=== PATIENT | female | born 1990 | race Caucasian/White ===

== ENCOUNTER 2020-04-22 16:15 | Inpatient (IN) | payer BC ==
[~2020-04-22] VITALS: Ht 157.5 cm; Wt 54.0 kg
[2020-04-22] MEDS ORDERED: IV NORMAL SALINE 1000 ML BAG IV ONE ×2 (17:00→19:15)
--- NOTE | 2020-04-22 17:18 | NUR ---
PATIENT OUT OF UNIT FOR US.
[2020-04-22 17:27] LABS: BASOPHILS # (AUTO) 0.1 K/uL (0.0-8.0); BASOPHILS % (AUTO) 0.4 % (0.0-2.0); EOSINOPHILS % (AUTO) 0.1 % (0.0-7.0); HEMATOCRIT 41.6 % (31.2-41.9); HEMOGLOBIN 13.8 g/dL (10.9-14.3); LYMPHOCYTES # (AUTO) 1.6 K/uL (20.0-40.0); LYMPHOCYTES % (AUTO) 9.3 % (20.5-51.5); MEAN CORPUSCULAR HEMOGLOBIN 30.5 uug (24.7-32.8); MEAN CORPUSCULAR HGB CONC 33 g/dL (32.3-35.6); MONOCYTES # (AUTO) 1.4 K/uL (2.0-10.0); MONOCYTES % (AUTO) 8.2 % (0.0-11.0); NEUTROPHILS # (AUTO) 14.4 K/uL (1.8-8.9); PLATELET COUNT (AUTO) 280 K/uL (179-408); RED BLOOD CELL COUNT(AUTO) 4.53 MIL/uL (3.63-4.92); WHITE BLOOD COUNT (AUTO) 17.5 K/uL (3.8-11.8)
--- NOTE | 2020-04-22 17:35 | NUR ---
PATIENT BACK FROM US WITH NO DISTRESS.
[2020-04-22 17:42] LABS: CARBON DIOXIDE 26 mmol/L (21-32); CHLORIDE 98 mmol/L (98-107); CREATININE 0.9 mg/dL (0.6-1.3); GLUCOSE 135 mg/dL (74-106); POTASSIUM 3.3 mmol/L (3.5-5.1); UREA NITROGEN, BLOOD 6 mg/dL (7-18)
[2020-04-22 17:48] LABS: ALANINE AMINOTRANSFERASE 20 U/L (14-59); ALKALINE PHOSPHATASE 40 U/L (50-136); ASPARTATE AMINOTRANSFERASE 13 U/L (15-37); BILIRUBIN,DIRECT 0.3 mg/dL (0.0-0.2); BILIRUBIN,TOTAL 1.2 mg/dL (0.2-1.0); LIPASE 75 U/L (73-393); TOTAL PROTEIN, SERUM 8.8 g/dL (6.4-8.2)
[2020-04-22 18:12] LABS: *CLARITY,URINE SLIGHTLY CLOUDY (CLEAR); *COLOR,URINE DARK YELLOW (YELLOW); *KETONES,URINE 4+ (NEGATIVE); LEUKOCYTE ESTERASE ,URINE 1+ (NEGATIVE); NITRITE, URINE NEGATIVE (NEGATIVE); UGLUCOSE NEGATIVE (NEGATIVE)
[2020-04-22 18:14] LABS: *BILIRUBIN,URIN 2+ (NEGATIVE); *BLOOD, URINE TRACE (NEGATIVE)
[2020-04-22] MEDS ORDERED: IV NORMAL SALINE 250 ML IV ONE (18:21)
[2020-04-22] MEDS ORDERED: IOHEXOL 300MG/ML 100 ML INFUS..BTL ONE (18:21)
[2020-04-22] MEDS ORDERED: SWABABLE VALVE TRANSFER SET EA MC ONE (18:21)
[2020-04-22 19:12] LABS: BACTERIA,URINE FEW /HPF (NONE SEEN); RBC,URINE 0-3 /HPF (0-3); SQUAMOUS EPITHELIAL CELL,UR MANY /HPF (NONE SEEN)
[2020-04-22] MEDS ORDERED: PIPERACILLIN SODIUM/TAZOBACTAM 3.375 G in IV DEXTROSE 5% 50 ML IV ONE (19:15)
[2020-04-22] MEDS ORDERED: DIATR MEGLU/DIATRIZOATE SODIUM 30 ML BOTTLE ONE (19:19)
[2020-04-22] MEDS ORDERED: PIPERACILLIN/TAZOBACTAM/D5W 50 ML IV ONE (19:26)
--- NOTE | 2020-04-22 20:49 | NUR ---
DR MARYANN ZACARIAS INTO EVAL PATIENT A SURGERY CONSULT.
--- NOTE | 2020-04-22 21:45 | NUR ---
Received patient via wheelchair from ED. No s/s of acute distress noted. Pt denies pain, and n/v at this times. AAOX4. Ambulatory and independent. Safety measures in place and will continue to monitor.
--- NOTE | 2020-04-22 23:45 | NUR ---
Transfered to 3rd floor med surg via wheelchair with no distress noted.
[2020-04-23 00:40] VITALS: BP 128/63
[2020-04-23] MEDS ORDERED: ACETAMINOPHEN 650 MG SUPP.RECT RC PRN (01:30)
[2020-04-23] MEDS ORDERED: MORPHINE SULFATE 2 MG/1 ML DISP.SYRIN IV PRN (01:30)
[2020-04-23] MEDS: IV D5/ 0.9% NACL 1,000 ML IV PRN ×2 (02:27→16:31)
[2020-04-23 04:00] VITALS: BP 123/69
[2020-04-23 08:07] LABS: BASOPHILS % (AUTO) 0.3 % (0.0-2.0); EOSINOPHILS # (AUTO) 0.1 K/uL (0.0-0.7); EOSINOPHILS % (AUTO) 1.1 % (0.0-7.0); HEMATOCRIT 34.4 % (31.2-41.9); HEMOGLOBIN 11.8 g/dL (10.9-14.3); LYMPHOCYTES # (AUTO) 2.6 K/uL (20.0-40.0); LYMPHOCYTES % (AUTO) 18.8 % (20.5-51.5); MEAN CORPUSCULAR HEMOGLOBIN 31.6 uug (24.7-32.8); MEAN CORPUSCULAR HGB CONC 34 g/dL (32.3-35.6); MEAN CORPUSCULAR VOLUME 92.3 fL (75.5-95.3); MONOCYTES # (AUTO) 1.3 K/uL (2.0-10.0); MONOCYTES % (AUTO) 9.7 % (0.0-11.0); NEUTROPHILS # (AUTO) 9.6 K/uL (1.8-8.9); NEUTROPHILS % (AUTO) 70.1 % (38.5-71.5); PLATELET COUNT (AUTO) 247 K/uL (179-408); RED BLOOD CELL COUNT(AUTO) 3.73 MIL/uL (3.63-4.92); WHITE BLOOD COUNT (AUTO) 13.7 K/uL (3.8-11.8)
[2020-04-23 08:38] LABS: BILIRUBIN,TOTAL 0.9 mg/dL (0.2-1.0); CREATININE 0.7 mg/dL (0.6-1.3); MAGNESIUM 2.1 mg/dL (1.8-2.4); PHOSPHOROUS 2.7 mg/dL (2.5-4.9); POTASSIUM 3.6 mmol/L (3.5-5.1); TOTAL PROTEIN, SERUM 7.2 g/dL (6.4-8.2)
[2020-04-23] MEDS ORDERED: PANTOPRAZOLE SODIUM 40 MG VIAL IV SCH (09:00)
[2020-04-23] MEDS: PIPERACILLIN SODIUM/TAZOBACTAM 3.37 G in IV DEXTROSE 5% 100 ML IV SCH ×2 (09:14→16:24)
[2020-04-23] MEDS ORDERED: GOLYTELY 4000 ML BOTTLE PO ONE (10:00)
[2020-04-23 12:00] VITALS: BP 108/51
[2020-04-23] MEDS ORDERED: PIPERACILLIN SODIUM/TAZOBACTAM 3.375 G in IV DEXTROSE 5% 50 ML IV SCH (14:00)
[2020-04-23 16:00] VITALS: BP 118/73
--- NOTE | 2020-04-23 19:30 | NUR ---
RECEIVED PT AWAKE, ALERT AND ORIENTEDX4. PT IN NO ACUTE DISTRESS. IV INTACT. PT TO HAVE BOWEL PREP. NPO MIDNIGHT FOR PROCEDURE [place]. CONSENT SIGNED. SAFETY AND COMFORT PROVIDED. WILL CONTINUE TO MONITOR.
[2020-04-23 20:00] VITALS: BP 122/77
[2020-04-24] MEDS: PIPERACILLIN SODIUM/TAZOBACTAM 3.37 G in IV DEXTROSE 5% 100 ML IV SCH ×2 (00:19→09:00)
[2020-04-24 04:00] VITALS: BP 108/68
--- NOTE | 2020-04-24 06:33 | NUR ---
PT IN NO ACUET DISTRESS.PT HAD LAST GI WASTE CLEAR LIQUID. PT FINISHED HER GOLITELY. PRESCRIBED MEDICATION GIVEN AND PT TOLERATED IT WELL. SAFETY AND COMFORT PROVIDED. PREOP CHECKLIST DONE. ALL NEEDS ARE MET . WILL ENDORSE TO INCOMING NURSE FOR CONITNUITY OF CARE.
--- NOTE | 2020-04-24 06:52 | NUR ---
GAVE REPORT TO FROM SURGERY.
--- NOTE | 2020-04-24 07:00 | NUR ---
pt went for surgery via bed in stable condition
[2020-04-24 07:18] LABS: BILIRUBIN,TOTAL 0.5 mg/dL (0.2-1.0); CREATININE 0.7 mg/dL (0.6-1.3); POTASSIUM 3.7 mmol/L (3.5-5.1); TOTAL PROTEIN, SERUM 6.5 g/dL (6.4-8.2)
[2020-04-24 07:28] LABS: BASOPHILS # (AUTO) 0.2 K/uL (0.0-8.0); BASOPHILS % (AUTO) 1.7 % (0.0-2.0); EOSINOPHILS # (AUTO) 0.2 K/uL (0.0-0.7); EOSINOPHILS % (AUTO) 2.6 % (0.0-7.0); HEMATOCRIT 34.3 % (31.2-41.9); HEMOGLOBIN 11.7 g/dL (10.9-14.3); LYMPHOCYTES # (AUTO) 3.2 K/uL (20.0-40.0); LYMPHOCYTES % (AUTO) 35.1 % (20.5-51.5); MEAN CORPUSCULAR HEMOGLOBIN 31.4 uug (24.7-32.8); MEAN CORPUSCULAR HGB CONC 34 g/dL (32.3-35.6); MEAN CORPUSCULAR VOLUME 92.3 fL (75.5-95.3); MONOCYTES # (AUTO) 0.9 K/uL (2.0-10.0); MONOCYTES % (AUTO) 10.3 % (0.0-11.0); NEUTROPHILS # (AUTO) 4.5 K/uL (1.8-8.9); NEUTROPHILS % (AUTO) 50.3 % (38.5-71.5); PLATELET COUNT (AUTO) 251 K/uL (179-408); RED BLOOD CELL COUNT(AUTO) 3.72 MIL/uL (3.63-4.92)
[2020-04-24] MEDS ORDERED: MIDAZOLAM HCL 2 MG/2 ML VIAL ONE (07:36)
[2020-04-24] MEDS ORDERED: FENTANYL CITRATE 100 MCG/2 ML AMPUL ONE ×2 (07:36→12:17)
[2020-04-24] MEDS ORDERED: METRONIDAZOLE 500 MG/NS 100 ML PIGGYBACK IV ONE (08:03)
[2020-04-24] MEDS ORDERED: LIDOCAINE HCL 1% 20 ML VIAL ONE (08:38)
[2020-04-24] MEDS ORDERED: BUPIVACAINE/EPI PF 0.5% 10 ML VIAL ONE ×2 (08:38→11:19)
[2020-04-24] MEDS: FAMOTIDINE. 20 MG/2 ML VIAL IV SCH ×2 (09:00→21:05)
[2020-04-24] MEDS ORDERED: ACETAMINOPHEN ES 500 MG TABLET PO PRN (11:45)
[2020-04-24 12:00] VITALS: BP 137/84
--- NOTE | 2020-04-24 12:53 | NUR ---
pt received back from recovery room via bed in stable condition
[2020-04-24] MEDS: METRONIDAZOLE 500 MG/NS 100ML 100 ML IV SCH ×2 (12:56→21:05)
[2020-04-24] MEDS: CEFAZOLIN 2 G in IV DEXTROSE 5% 100 ML IV SCH ×2 (14:00→22:56)
[2020-04-24] MEDS: HYDROCODONE/APAP 5-325MG TABLET PO PRN (14:22)
[2020-04-24] MEDS: ONDANSETRON 4 MG/2 ML VIAL IV PRN (14:23)
[2020-04-24] MEDS: HYDROMORPHONE 1 MG/1 ML DISP.SYRIN IV PRN ×2 (15:53→21:10)
[2020-04-24 16:00] VITALS: BP 137/81
--- NOTE | 2020-04-24 17:17 | NUR ---
in room sleeping no c/o pain noted .clear liquids tolerated.call light with in reach
[2020-04-24 20:21] VITALS: BP 124/73
[2020-04-24] MEDS: IV D5/ 0.9% NACL 1,000 ML IV PRN (21:05)
--- NOTE | 2020-04-25 00:28 | NUR ---
Received pt resting in bed. AAO x4. No acute distress noted. Complaint of pain post- op surgery, PRN pain med given as ordered. Other due meds given as ordered. IV on left AC, running IVF D5 80cc/hr. On clear liquid diet, tolerating well. Safety measures maintained. Call light and personal items within reach. Will continue to monitor.
[2020-04-25] MEDS: HYDROCODONE/APAP 5-325MG TABLET PO PRN ×2 (00:53→21:13)
[2020-04-25] MEDS: HYDROMORPHONE 1 MG/1 ML DISP.SYRIN IV PRN ×3 (04:01→16:46)
[2020-04-25 04:03] VITALS: BP 136/74
--- NOTE | 2020-04-25 07:00 | NUR ---
Received pt resting in bed. AAO x4. No acute distress noted. Complaint of pain post- op surgery, IV on left AC, running IVF . On clear liquid diet, tolerating well. Safety measures maintained. Call light and personal items within reach. Will continue to monitor.
--- NOTE | 2020-04-25 07:41 | NUR ---
pt walk in the hallway tolerated well burping and no c/o nausea and vomiting noted
[2020-04-25] MEDS: FAMOTIDINE. 20 MG/2 ML VIAL IV SCH ×2 (07:52→21:13)
[2020-04-25 08:02] LABS: BASOPHILS % (AUTO) 0.4 % (0.0-2.0); EOSINOPHILS % (AUTO) 0.3 % (0.0-7.0); HEMOGLOBIN 10.1 g/dL (10.9-14.3); LYMPHOCYTES # (AUTO) 1.9 K/uL (20.0-40.0); LYMPHOCYTES % (AUTO) 17.7 % (20.5-51.5); MEAN CORPUSCULAR HEMOGLOBIN 31.8 uug (24.7-32.8); MEAN CORPUSCULAR HGB CONC 35 g/dL (32.3-35.6); MEAN CORPUSCULAR VOLUME 91.7 fL (75.5-95.3); MONOCYTES # (AUTO) 0.8 K/uL (2.0-10.0); MONOCYTES % (AUTO) 7.7 % (0.0-11.0); NEUTROPHILS # (AUTO) 8.1 K/uL (1.8-8.9); NEUTROPHILS % (AUTO) 73.9 % (38.5-71.5); PLATELET COUNT (AUTO) 225 K/uL (179-408); RED BLOOD CELL COUNT(AUTO) 3.16 MIL/uL (3.63-4.92); WHITE BLOOD COUNT (AUTO) 10.9 K/uL (3.8-11.8)
[2020-04-25 08:08] LABS: BILIRUBIN,TOTAL 0.4 mg/dL (0.2-1.0); CREATININE 0.6 mg/dL (0.6-1.3); POTASSIUM 3.4 mmol/L (3.5-5.1); TOTAL PROTEIN, SERUM 5.7 g/dL (6.4-8.2)
[2020-04-25] MEDS ORDERED: POTASSIUM CHLORIDE 20 MEQ POWDER PACKET PO ONE (09:30)
[2020-04-25] MEDS ORDERED: POTASSIUM CHLORIDE 20 MEQ TAB.PRT.SR PO ONE (09:30)
[2020-04-25] MEDS: ONDANSETRON 4 MG/2 ML VIAL IV PRN (09:58)
[2020-04-25] MEDS: IV D5/ 0.9% NACL 1,000 ML IV PRN (12:11)
[2020-04-25 12:32] VITALS: BP 114/65
[2020-04-25] MEDS ORDERED: IV NS 1000 ML 1,000 ML IV ONE (13:00)
[2020-04-25 15:49] VITALS: BP 121/79
[2020-04-25 20:00] VITALS: BP 137/83
--- NOTE | 2020-04-25 21:50 | NUR ---
Received pt resting in bed. AAO x4. No acute distress noted. Pt ambulated inside the room. Complaint of 7/10 pain on abdomen, PRN [place]ott and other due med given as ordered. IV on left AC running IVF. Pt burping. Pt not passing gas yet. Lazo catheter patent and intact, draining well with clear yellow colored urine. Safety measures maintained. Call light and personal items within reach. Will continue to monitor.
[2020-04-26] MEDS: ONDANSETRON 4 MG/2 ML VIAL IV PRN (02:42)
[2020-04-26 05:09] VITALS: BP 138/84
--- NOTE | 2020-04-26 05:12 | NUR ---
Pt reported to have passed gas and had 2 BM.
[2020-04-26 07:34] LABS: BASOPHILS # (AUTO) 0.4 K/uL (0.0-8.0); BASOPHILS % (AUTO) 3.7 % (0.0-2.0); EOSINOPHILS # (AUTO) 0.1 K/uL (0.0-0.7); EOSINOPHILS % (AUTO) 0.9 % (0.0-7.0); HEMATOCRIT 34.4 % (31.2-41.9); HEMOGLOBIN 11.4 g/dL (10.9-14.3); LYMPHOCYTES # (AUTO) 1.3 K/uL (20.0-40.0); LYMPHOCYTES % (AUTO) 12.8 % (20.5-51.5); MEAN CORPUSCULAR HEMOGLOBIN 30.2 uug (24.7-32.8); MEAN CORPUSCULAR HGB CONC 33 g/dL (32.3-35.6); MEAN CORPUSCULAR VOLUME 91.4 fL (75.5-95.3); MONOCYTES # (AUTO) 0.6 K/uL (2.0-10.0); MONOCYTES % (AUTO) 5.7 % (0.0-11.0); NEUTROPHILS % (AUTO) 76.9 % (38.5-71.5); PLATELET COUNT (AUTO) 286 K/uL (179-408); RED BLOOD CELL COUNT(AUTO) 3.77 MIL/uL (3.63-4.92); WHITE BLOOD COUNT (AUTO) 10.3 K/uL (3.8-11.8)
[2020-04-26 07:36] LABS: CARBON DIOXIDE 24 mmol/L (21-32); CHLORIDE 103 mmol/L (98-107); CREATININE 0.5 mg/dL (0.6-1.3); GLUCOSE 100 mg/dL (74-106); MAGNESIUM 1.7 mg/dL (1.8-2.4); PHOSPHOROUS 3.3 mg/dL (2.5-4.9); POTASSIUM 3.8 mmol/L (3.5-5.1)
[2020-04-26 08:00] VITALS: BP 125/92
--- NOTE | 2020-04-26 08:00 | NUR ---
RESTING IN BED NO SS OF ACUTE PAIN OR DISTRESS, ON RA.
[2020-04-26] MEDS: FAMOTIDINE. 20 MG/2 ML VIAL IV SCH ×2 (08:03→21:11)
[2020-04-26 08:05] LABS: UREA NITROGEN, BLOOD 3 mg/dL (7-18)
[2020-04-26] MEDS ORDERED: MAGNESIUM SULFATE/D5W 100 ML IV SCH (08:45)
--- NOTE | 2020-04-26 10:00 | NUR ---
STILL C/O OF BEARABLE ABDOMINAL PAIN 2/10 REFUSED PAIN MEDS OFFERED. GOOD BOWEL SOUNDS. BRP VERBALIZED DISCOMFORT FROM MORALES CATHETER. MORALES DISCONTINUED AND FELT BETTER AFTER.
[2020-04-26 11:00] VITALS: BP 128/82
--- NOTE | 2020-04-26 14:00 | NUR ---
VOIDING FREELY TO THE TOILET. PATIENT HAVE MENSTRUAL PERIOD ON GOING
--- NOTE | 2020-04-26 16:05 | NUR ---
SEEN BY ARMATURE W[employer]ER HELPER REPAIR CHRIS, CONTINUE PLAN OF CARE, AWATING DR SOUZA AND SURGERY RECOMMENDATION
[2020-04-26 16:18] VITALS: BP 137/91
--- NOTE | 2020-04-26 18:37 | NUR ---
tolerating clear liquid well, no pain meds given, no vomiting, afebrile
--- NOTE | 2020-04-26 19:30 | NUR ---
RECEIVED PT AWAKE, ALERT , AND ORIENTEDX4. PT ON ROOM AIR. PT IN NO ACUTE DISTRESS. IV INTACT. SAFETY AND COMFORT PROVIDED. WILL CONTINUE TO MONITOR.
[2020-04-26 19:31] LABS: BAND % (MANUAL) 2 % (0-10); EOSINOPHILS % (MANUAL) 1 % (0-8); LYMPHOCYTES % (MANUAL) 18 % (20-40); MONOCYTES % (MANUAL) 5 % (2-10); NEUTROPHILS % (MANUAL) 74 % (42-75)
[2020-04-26 21:15] VITALS: BP 142/85
[2020-04-27 06:11] VITALS: BP 122/74
--- NOTE | 2020-04-27 06:12 | NUR ---
PT SLEPT INTERMITTENTLY. AT [address]H DR. DRAKE ZACARIAS ORDERED SOFT DIET FOR THE PT FOR BREAKFAST. DR. ZACARIAS SEEN THE PT AND ANSWERED QUESTION OF THE PT. .PT TOLERATING CLEAR LIQUID DIET. PT IN NO ACUTE DISTRESS.SAFETY AND COMFORT PROVIDED. ALL NEEDS ARE MET. WILL ENDORSE TO INCOMING NURSE FOR CONTINUITY OF CARE.
[2020-04-27 06:46] LABS: BASOPHILS # (AUTO) 0.1 K/uL (0.0-8.0); BASOPHILS % (AUTO) 0.8 % (0.0-2.0); EOSINOPHILS # (AUTO) 0.2 K/uL (0.0-0.7); EOSINOPHILS % (AUTO) 2.6 % (0.0-7.0); HEMATOCRIT 35.7 % (31.2-41.9); LYMPHOCYTES # (AUTO) 2.6 K/uL (20.0-40.0); LYMPHOCYTES % (AUTO) 27.2 % (20.5-51.5); MEAN CORPUSCULAR HEMOGLOBIN 30.7 uug (24.7-32.8); MEAN CORPUSCULAR HGB CONC 34 g/dL (32.3-35.6); MEAN CORPUSCULAR VOLUME 91.1 fL (75.5-95.3); MONOCYTES # (AUTO) 1.1 K/uL (2.0-10.0); MONOCYTES % (AUTO) 11.4 % (0.0-11.0); NEUTROPHILS # (AUTO) 5.5 K/uL (1.8-8.9); PLATELET COUNT (AUTO) 316 K/uL (179-408); RED BLOOD CELL COUNT(AUTO) 3.92 MIL/uL (3.63-4.92); WHITE BLOOD COUNT (AUTO) 9.5 K/uL (3.8-11.8)
[2020-04-27 06:53] LABS: CREATININE 0.6 mg/dL (0.6-1.3); MAGNESIUM 1.7 mg/dL (1.8-2.4); POTASSIUM 3.6 mmol/L (3.5-5.1)
[2020-04-27] MEDS: FAMOTIDINE. 20 MG/2 ML VIAL IV SCH (07:58)
[2020-04-27] MEDS ORDERED: MAGNESIUM SULFATE/D5W 100 ML IV SCH (08:30)
[2020-04-27] MEDS ORDERED: ONDA4TAB5 PO (08:35)
[2020-04-27] MEDS ORDERED: DOCU100C36 PO (08:35)
[2020-04-27] MEDS ORDERED: HYDR-4384 PO (08:35)
--- NOTE | 2020-04-27 09:30 | NUR ---
seen by data input clerk for follow-up discharge order given. discharge order and follow-up instruction given
--- NOTE | 2020-04-27 11:40 | NUR ---
discharged home stable with partner via private car, follow-up with pcp
== END 2020-04-27 11:30 | disposition home or self-care (01) | DRG 330 ==
LOC: ER 16:15 → MEDSURG3 23:29
PROVIDERS: ADMIT Nurse Practitioner Acute Care; ATTEND Nurse Practitioner Acute Care
PROC: 0DBF4ZZ Excision of Right Large Intestine, Percutaneous Endoscopic Approach (ICD-10-PCS; principal; 2020-04-24)
PROC: 07BB4ZX Excision of Mesenteric Lymphatic, Percutaneous Endoscopic Approach, Diagnostic (ICD-10-PCS; 2020-04-24)
PROC: 3E0T3BZ Introduction of Anesthetic Agent into Peripheral Nerves and Plexi, Percutaneous Approach (ICD-10-PCS; 2020-04-24)
DX: K56.1 Intussusception (principal); E87.1 Hypo-osmolality and hyponatremia; N39.0 Urinary tract infection, site not specified; R17 Unspecified jaundice; E87.6 Hypokalemia; B96.89 Other specified bacterial agents as the cause of diseases classified elsewhere; D64.9 Anemia, unspecified; E88.09 Other disorders of plasma-protein metabolism, not elsewhere classified; K42.9 Umbilical hernia without obstruction or gangrene; N83.209 Unspecified ovarian cyst, unspecified side; Z82.49 Family history of ischemic heart disease and other diseases of the circulatory system; Z83.3 Family history of diabetes mellitus; Z20.828 Contact with and (suspected) exposure to other viral communicable diseases; R59.0 Localized enlarged lymph nodes; K63.89 Other specified diseases of intestine
CPT/HCPCS: 36415; 70030-TC; 71045; 76856; 82378; 83605; 83690; 83735; 84100; 84146; 85025; 85610; 85730; 86301; 87040; 87086; 93005; A4649; A4663; C9113; G0378; J0690; J1170; J2250; J2405; J2543; J3010; J3475; J3490; J7030; J7042; J7050; J7060; Q9963; Q9967